=== PATIENT | male | born 1940 | race Caucasian/White ===

== ENCOUNTER 2021-01-15 07:41 | Day surgery (SDC) | payer MEDICARE, MEDICAID, SELFPAY ==
[2021-01-15] VITALS (9 sets, daily range): BP systolic 137–167; BP diastolic 72–83; PULSE 57–70; RESP 16–18; TEMP 36.1–37.1; O2SAT 93–100; BMI 19.9
--- NOTE | 2021-01-15 | LES_PTH ---
PATIENT: JOANA FELIPE LOC: [facility] [place] U#:[id number] AGE/SX: 80/M ROOM: RE01/15/[address]: Dr. Omar Perez MD : [id number] BED: DIS: 01/15/2021 SPEC #: [id number] RECD: 01/15/21 10:19 STATUS: RAEGAN REQ #: [id number] EKATERINA: 01/15/21 00:[address]: Omar Perez DEPT: SURGICAL PATHOLOGY RECD BY: Brittany Lara ENTERED: 01/15/21 10:56 SP TYPE: Lesion OTHR DR: Nara Barnett, CAN RECONDITIONER-C [facility] Tissues: Tongue, NOS Procedures: Frozen Section (charge) Frozen Section [facility] ([facility]) Surgery Specimen Level IV HEADER OPERATION: Tongue biopsy posterior 10/04, frozen section PRE-OP DIAGNOSIS: Suspicious lesion of left posterior tongue; history of cancer TISSUE SUBMITTED: Left posterior tongue, FS FROZEN SECTION DIAGNOSIS Lesion of left posterior tongue, biopsy: 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 See comment. AM:mark 01/18/2021 COMMENT The lesion is completely excised in the planes examined. MICROSCOPIC DESCRIPTION Slides are reviewed. GROSS DESCRIPTION Received fresh for frozen section diagnosis labeled with the patient's name is a specimen designated left posterior tongue. The specimen consists of a piece of gibson mucosal tissue measuring 2 x 1.5 x 0.5 cm. The specimen is oriented as follows: single stitch - anterior, double stitch - lateral. The specimen is inked as follows: anterior - black, posterior - blue, lateral tip - green and medial tip - yellow. The specimen is serially sectioned and submitted entirely for frozen section diagnosis in two cassettes. Cassette 1 contains the tips. / SJ:rg 01/15/21 TC:0 CPT: 60447, 14395, 56111 ADDENDUM ADDENDUM ADDENDUM ADDENDUM ADDENDUM ADDENDUM ADDENDUM ADDENDUM ADDENDUM ADDENDUM 02/17/2021 11:19 ADDENDUM 02/25/2021 13:00 ADDENDUM 02/17/2021 11:19 ADDENDUM 02/17/2021 11:19 ADDENDUM 02/17/2021 11:19 ADDENDUM 02/17/2021 11:19 This addendum is added to incorporate an outside pathology consultation report. The case was examined at [facility] (#[id number]) and the following diagnosis was rendered. Left posterior tongue, biopsy: Invasive squamous cell carcinoma, moderately differentiated. Please see complete above mentioned consultation report in EMR The carcinoma is located 2 mm from one lateral margin and 2.5 mm from the opposite lateral margin. The carcinoma is located 5 mm from the deep margin of excision. This case is discussed with Dr. Bennett ([facility], [place], [place]) on 02/25/2021.
--- NOTE | 2021-01-15 08:21 | EKG12_ITS ---
Test Reason : PRE OP Blood Pressure : / mmHG Vent. Rate : 066 BPM Atrial Rate : 066 BPM P-R Int : 206 ms QRS Dur : 126 ms QT Int : 426 ms P-R-T Axes : 049 -48 049 degrees QTc Int : 446 ms Normal sinus rhythm Left axis deviation Left ventricular hypertrophy with QRS widening Abnormal ECG Confirmed by ION GRIFFITH, JOANA ([id number]), editorial clerk NIKITA STERN ([id number]) on 01/18/2021 9:02:57 AM Referred By: Omar Perez Confirmed By:JOANA LEMON MD
[2021-01-15] MEDS: Lactated Ringers 1,000 ML 100 ML IV (08:29)
[2021-01-15 08:32] LABS: Absolute Lymphocyte Count 1.37 X10^3/uL (0.83-4.51); Absolute Neutrophil Count 1.5 X10^3/uL (2.0-7.7); Basophil# 0.02 X10^3/uL; Basophil% 0.6 % (0-1); Eosinophils% 5.7 % (0-5); Hematocrit 43.3 % (40-54); Hemoglobin 15.2 g/dL (13.0-16.5); Lymphocyte # 1.37 X10^3/ul (0.83-4.51); Lymphocyte % 38.8 % (19-41); Mean Corp Hgb Conc 35.1 g/dL (32-36); Mean Corpuscular Hgb 34.2 pg (27.0-32.0); Mean Corpuscular Volume 97.5 fL (80-94); Mean Platelet Vol. 8.8 fl (6.2-12.0); Monocyte# 0.46 X10^3/uL; NRBC Flagged by Analyzer 0 % (0-5); Neutrophil # 1.47 X10^3/uL (2.7-7.7); Neutrophil % 41.6 % (47-70); Platelet Count 175 K/mm3 (150-450); RBC Distribution Width CV 13.8 % (11.6-14.6); RBC Distribution Width SD 48.9 fl (35.1-43.9); Red Blood Count 4.44 M/mm3 (4.6-6.2); White Blood Count 3.5 K/mm3 (4.4-11.0)
[2021-01-15 08:44] LABS: Anion Gap 9 (5-15); BUN 13 mg/dL (7-18); BUN/Creat Ratio 11.4 RATIO (10-20); Calcium,Total 8.6 mg/dL (8.5-10.1); Chloride 109 mmol/L (98-107); Creatinine, Serum 1.14 mg/dL (0.70-1.30); EST Glomerular Filtration Rate 65 mL/min (>60); Est Glom Filt Rate - Afr Amer 79 mL/min (>60); Estimated Creatinine Clearance 49.24 ml/min; Glucose 96 mg/dL (74-106); Potassium 3.6 mmol/L (3.5-5.1); Sodium Level 142 mmol/L (136-145)
[2021-01-15] MEDS: Lidocaine 1% /Epi 1:100 (20ml) 20 ML Vial (10:00)
--- NOTE | 2021-01-15 10:38 | PCM.OPRPT ---
Problem List (1) Malignant neoplasm of tongue Status: Acute (2) Smoking Status: Acute Report of Operation Date of Procedure: 01/15/21 Pre-Operative Diagnosis: Squamous cell carcinoma of posterior tongue, throat pain, tobacco dependency Post-Operative Diagnosis: Same Surgery/Procedure Performed:: Direct laryngoscopy, excision of tumor from left posterior tongue 1.5 x 2.5 cm Description of Surgical Findings:: Donald is an 80-year-old male with a history of tonsillar cancer who presents with a painful ulceration along the posterior aspect of the left side of the tongue worrisome for recurrent malignancy. He been having some pain at this location and exam showed a firm ulcerated area suspicious for recurrence and excision and endoscopic evaluation for other disease was advised. He is agreeable to proceed. The risks, alternatives, potential complications, and benefits were discussed at length and any questions answered to the patient and/or caregiver's satisfaction. Witnessed informed consent was obtained in the office, and the patient and/or caregiver was agreeable to proceed. Procedure went as follows: The patient was identified in the preoperative holding and brought to the operating room, placed under general anesthesia, and intubated. When appropriate anesthesia was obtained, the head of bed was rotated and the patient prepped and draped in usual sterile fashion. A moistened gauze was then placed to protect the upper gums and the Dedo laryngoscope then introduced. Direct laryngoscopy was then carried out. The lateral posterior pharyngeal wall mucosa, tonsillar fossa, vallecula, piriforms, and epiglottis were noted to be normal in appearance with the exception of a 1 x 1.5 cm firm ulcerated lesion arising at the left tongue base at the junction of the palatopharyngeus muscle. The true and false vocal folds were then brought into view noted to have some mild edema consistent with his previous radiation therapy but no other lesions. The laryngoscope was then withdrawn and attention turned to excision of the visible lesion. Cheek retractor was then placed in a 3-0 silk suture secured in the anterior tongue to allow for retraction. The left posterior lesion was then injected with 1% lidocaine with 100,000 epinephrine for vasoconstriction. After allowing for vasoconstriction, using a [place] tip monopolar cautery the area involving the mass was then excised with a 5 mm margin of normal tissue sacrificed and the specimen then sent for pathologic evaluation. This confirmed invasive squamous cell carcinoma with clear surgical margins. No bleeding was encountered at the resection site and this was left to heal by secondary intention to avoid restriction of the tongue movements given his previous surgical and radiation therapy treatments. The cheek retractor and suture of the tongue were then removed. The patient was then returned to anesthesia, was revived, and extubated without complication having tolerated the procedure well. Type of Anesthesia:: General Anesthesiologist: Simone Bennett Special Medications: none Specimen's removed: left posterior tongue lesion Estimated Blood Loss (mL): 0 mL Fluids Replaced: 400 mL Grafts/Implants Used: none - Complications none - Admit VTE Documentation VTE Present on Admission: No VTE Mechan Device Prophylaxis: SCD's VTE Pharm Prophylaxis ordered?: No
--- NOTE | 2021-01-15 10:50 | PCM.DC ---
- Discharge Diagnoses Current Active Problems: Current Active and Chronic Problems Malignant neoplasm of tongue (Acute) Smoking (Acute) You will use the following diet at home:: Regular Discharge Activity: Return to Normal Activity Call your doctor if your incision/area has: Sudden Increased Bleeding Call your doctor if you observe: Fever of 101 or Higher, Uncontrolled pain Allergies/Adverse Reactions: Allergies nitroglycerin [From Nitroglyn] Allergy (Verified 01/15/21 07:53) spasms Medications to take at Discharge Albuterol IH (ProAir) [Proair Hfa (SP)Vent Pts] 1 - 2 puff INHALATION Q4H PRN PRN 01/06/21 Atorvastatin Calcium [Lipitor] 20 mg PO QHS 01/06/21 Clopidogrel Bisulfate [Plavix] 75 mg PO DAILY 01/06/21 Losartan Potassium [Cozaar] 100 mg PO DAILY 01/06/21 Omeprazole 40 mg PO DAILY 01/06/21 Oxycodone HCl/Acetaminophen [Oxycodone-Acetaminophen 5-325] 1 each PO 4X/DAY 01/06/21 Sertraline HCl [Zoloft] 50 mg PO DAILY 01/06/21 Tamsulosin HCl [Flomax] 0.4 mg PO QHS 01/06/21 [facility] - Test Results: Test results from this visit will be discussed in further detail at your follow-up appointment, if applicable. Please Follow Up With: Omar Perez MD When: 2 weeks
[2021-01-15] MEDS: Acetaminophen 500 MG Tablet PO (12:28)
[2021-01-15] MEDS: Acetaminophen 160 MG/5 ML UDC 500 MG PO (12:51)
--- NOTE | 2021-01-15 12:52 | SUR.PHASEI ---
Addendum entered by Hayden Montgomery 01/15/21 12:53: THIS OCCURRED IN PHASE 2 NOT PHASE 1. Original Note: PATIENT GOT THE FIRST TYLENOL PILL STUCK AND PART OF THE PILL CAME BACK UP. DR. CISNEROS WAS AT THE BEDSIDE AND HE SAID GO AHEAD AND GIVEN HIM ANOTHER ONE. I CHANGED THE ORDER TO TYLENOL LIQUID BECAUSE WE WERE UNABLE TO CRUSH THE PILL. TYLENOL GIVEN BY THIS NURSE.
== END 2021-01-15 13:46 | disposition home or self-care (01) ==
LOC: SDC 07:43 → AC 07:48
PROVIDERS: Referring Provider Otolaryngology; Visit Provider Otolaryngology
PROC: (CPT 31535; principal; 2021-01-15 09:00)
DX: C01 Malignant neoplasm of base of tongue (principal); F17.200 Nicotine dependence, unspecified, uncomplicated; I10 Essential (primary) hypertension; J44.9 Chronic obstructive pulmonary disease, unspecified; K21.9 Gastro-esophageal reflux disease without esophagitis; E78.00 Pure hypercholesterolemia, unspecified; F41.9 Anxiety disorder, unspecified; F32.9 Major depressive disorder, single episode, unspecified; Z79.02 Long term (current) use of antithrombotics/antiplatelets; Z79.899 Other long term (current) drug therapy; Z20.822 Contact with and (suspected) exposure to COVID-19
CPT/HCPCS: 00320; 31535; 80048; 85025; 87426; 88305; 88331; 88332; 93005; J7120